=== PATIENT | female | born 1930 | race Caucasian/White ===

== ENCOUNTER 2017-01-28 01:10 | Inpatient (IN) | payer OTHER ==
[~2017-01-28] VITALS: Ht 162.6 cm; Wt 75.4 kg
[2017-01-28] VITALS (12 sets, daily range): BP systolic 128–161; BP diastolic 58–80
[~2017-01-28 01:10] MED LIST: AMARYL1 MG PO; AMLODIPINE BESY10 MG PO; ASPIRIN325 MG PO; CALCIUM + VITA1 EACH PO; COZAAR100 MG PO; DITROPAN XL5 MG; DITROPAN XL5 MG PO; HYDROCHLOROTHIA25 MG PO; LEVOTHYROXINE25 MCG PO; LEVOTHYROXINE50 MCG PO; LIPITOR20 MG PO; LOVENOX40 MG/0.4 SC; MULTI-DAY VITA1 EACH PO; NEURONTIN300 MG PO; PAXIL10 MG PO; PRILOSEC20 MG PO; TENORMIN50 MG PO; VITAMIN C1000 MG PO
[2017-01-28 02:05] LABS: MCH 21.8 PG (29.0-34.0); MCHC 28.9 G/DL (30.0-36.0); MCV 75.4 FL (83-99); MEAN PLAT.VOLUME 9.3 uM^3 (9.5-12.4); PLATELET COUNT 355 K/uL (156-360); RBC DIS.WIDTH-CV 18.4 % (11.8-14.6); RBC DIS.WIDTH-SD 48.5 % (39-53); RED BLOOD COUNT 2.52 M/uL (3.80-5.20); WHITE BLOOD COUNT 12.4 K/uL (4.1-10.2)
[2017-01-28 02:07] LABS: INTER. NORMALIZED RATIO 1.1; PROTHROMBIN TIME 10.7 (9.2-11.2); PTT 24.6 (25-32)
[2017-01-28 02:09] LABS: CHLORIDE 105 mEq/L (99-109); POTASSIUM 4.4 mEq/L (3.7-5.4); SODIUM 138 mEq/L (136-147)
[2017-01-28 02:11] LABS: GLUCOSE 147 mg/dL (70-99)
[2017-01-28 02:12] LABS: ANION GAP 12 MEQ/L (2-14)
[2017-01-28 02:15] LABS: GFR ESTIMATE (CALCULATED) > 59 mL/min/
[2017-01-28 02:16] LABS: UREA NITROGEN (BUN) 24 mg/dL (9-23)
[2017-01-28 02:19] LABS: TROP-I INTERPRETATION NEGATIVE; TROPONIN-I 0.02 ng/mL (0.0-0.30)
[2017-01-28 08:20] LABS: HEMATOCRIT 22.9 % (36.0-46.0); MCV 76.1 FL (83-99)
[2017-01-28 08:31] LABS: IRON 57 MCG/DL (35-150)
[2017-01-28 14:55] LABS: TROP-I INTERPRETATION NEGATIVE; TROPONIN-I 0.07 ng/mL (0.0-0.30)
[2017-01-28] MEDS ORDERED: LEVO-T50 MCG PO (17:07)
[2017-01-28 18:32] LABS: HEMATOCRIT 28.4 % (36.0-46.0); MCV 76.3 FL (83-99)
[2017-01-28 19:01] LABS: TROP-I INTERPRETATION NEGATIVE
[2017-01-29] VITALS (11 sets, daily range): BP systolic 132–187; BP diastolic 63–95
[2017-01-29 06:30] LABS: HEMATOCRIT 25.5 % (36.0-46.0); MCH 23.2 PG (29.0-34.0); MCHC 30.6 G/DL (30.0-36.0); MCV 75.9 FL (83-99); MEAN PLAT.VOLUME 9.2 uM^3 (9.5-12.4); PLATELET COUNT 286 K/uL (156-360); RBC DIS.WIDTH-CV 17.3 % (11.8-14.6); RBC DIS.WIDTH-SD 46.8 % (39-53)
[2017-01-29 06:40] LABS: ALKALINE PHOSPHATASE 58 IU/L (3-129); ANION GAP 8 MEQ/L (2-14); CHLORIDE 100 MEQ/L (99-109); GFR ESTIMATE (CALCULATED) > 59 mL/min/; SAMPLE HEMOLYSIS CHECK 0; SAMPLE ICTERIC CHECK 0; SAMPLE LIPEMIA CHECK 0; SODIUM 138 MEQ/L (136-147); TOTAL BILIRUBIN 1.8 MG/DL (0.0-1.0); UREA NITROGEN (BUN) 13 mg/dL (9-23)
[2017-01-29 06:52] LABS: GLUCOSE 104 mg/dL (70-99); POTASSIUM 3.3 MEQ/L (3.7-5.4)
[2017-01-29 07:00] LABS: RED BLOOD COUNT 3.36 M/uL (3.80-5.20); WHITE BLOOD COUNT 7.5 K/uL (4.1-10.2)
[2017-01-29 09:21] LABS: FERRITIN 12 NG/ML (10-291)
[2017-01-29 21:05] LABS: HEMATOCRIT 33.2 % (36.0-46.0); MCV 79.8 FL (83-99)
[2017-01-30 03:00] VITALS: BP 163/70
[2017-01-30 07:07] LABS: HEMATOCRIT 33.1 % (36.0-46.0); MCH 24.2 PG (29.0-34.0); MCHC 30.2 G/DL (30.0-36.0); MEAN PLAT.VOLUME 9.1 uM^3 (9.5-12.4); PLATELET COUNT 274 K/uL (156-360); RBC DIS.WIDTH-SD 56.3 % (39-53); WHITE BLOOD COUNT 6.1 K/uL (4.1-10.2)
[2017-01-30 07:20] VITALS: BP 173/80
[2017-01-30 08:26] LABS: RED BLOOD COUNT 4.14 M/uL (3.80-5.20)
[2017-01-30 08:56] LABS: ANION GAP 10 MEQ/L (2-14); CHLORIDE 102 MEQ/L (99-109); GFR ESTIMATE (CALCULATED) > 59 mL/min/; GLUCOSE 114 mg/dL (70-99); POTASSIUM 3.7 MEQ/L (3.7-5.4); SAMPLE HEMOLYSIS CHECK 0; SAMPLE ICTERIC CHECK 1; SAMPLE LIPEMIA CHECK 0; SODIUM 139 MEQ/L (136-147); UREA NITROGEN (BUN) 8 mg/dL (9-23)
[2017-01-30 12:03] VITALS: BP 151/72
[2017-01-30 15:10] LABS: POINT-OF-CARE METER ID UU13113694
[2017-01-30 15:35] VITALS: BP 179/74
[2017-01-30 19:30] VITALS: BP 136/63
[2017-01-30 20:40] LABS: HEMATOCRIT 33.3 % (36.0-46.0)
[2017-01-30 23:00] VITALS: BP 144/69
[2017-01-31 03:00] VITALS: BP 165/72
[2017-01-31 06:09] LABS: BASOPHIL COUNT 0.1 K/uL (0-0.1); EOSINOPHIL (%) 6.6 % (0-5); EOSINOPHIL COUNT 0.7 K/uL (0-0.3); HEMATOCRIT 35.6 % (36.0-46.0); IMMATURE GRANULOCYTE (%) 0.5 % (0.0-0.7); IMMATURE GRANULOCYTE COUNT 0.1 K/uL; INSTRUMENT ABS NEUTROPHIL CT 5.9 K/uL; LYMPHOCYTE COUNT 2.8 K/uL (1.0-2.8); MCH 24.4 PG (29.0-34.0); MCHC 30.3 G/DL (30.0-36.0); MCV 80.4 FL (83-99); MEAN PLAT.VOLUME 9.2 uM^3 (9.5-12.4); MONOCYTE (%) 9.1 % (3-12); NEUTROPHIL COUNT 5.9 K/uL (1.8-6.4); PLATELET COUNT 340 K/uL (156-360); RBC DIS.WIDTH-CV 20.6 % (11.8-14.6); RBC DIS.WIDTH-SD 58.1 % (39-53); RED BLOOD COUNT 4.43 M/uL (3.80-5.20)
[2017-01-31 06:11] LABS: WHITE BLOOD COUNT 10.6 K/uL (4.1-10.2)
[2017-01-31 06:37] LABS: TROP-I INTERPRETATION NEGATIVE; TROPONIN-I 0.05 ng/mL (0.0-0.30)
[2017-01-31 06:43] LABS: ALKALINE PHOSPHATASE 74 IU/L (3-129); ANION GAP 14 MEQ/L (2-14); CHLORIDE 98 MEQ/L (99-109); GFR ESTIMATE (CALCULATED) > 59 mL/min/; MAGNESIUM 1.9 mg/dl (1.3-2.7); POTASSIUM 3.6 MEQ/L (3.7-5.4); SAMPLE HEMOLYSIS CHECK 0; SAMPLE ICTERIC CHECK 0; SAMPLE LIPEMIA CHECK 0; SODIUM 136 MEQ/L (136-147); TOTAL BILIRUBIN 1.7 MG/DL (0.0-1.0); UREA NITROGEN (BUN) 16 mg/dL (9-23)
[2017-01-31 06:45] LABS: GLUCOSE 204 mg/dL (70-99)
[2017-01-31 07:26] VITALS: BP 170/70
[2017-01-31 11:58] VITALS: BP 165/70
== END 2017-01-31 15:21 | disposition short-term general hospital (02) | DRG 378 ==
LOC: EME → EDBD 01:10 → EME 01:10 → 4EAST 03:49 → EDOF 03:49 → 4EAST 04:32
PROVIDERS: Emergency Medicine; Hospitalist; Internal Medicine; Internal Medicine Cardiovascular Disease; Internal Medicine Gastroenterology
PROC: 30233N1 Transfusion of Nonautologous Red Blood Cells into Peripheral Vein, Percutaneous Approach (ICD-10-PCS; principal; 2017-01-28)
DX: K92.2 Gastrointestinal hemorrhage, unspecified (principal); I47.2 Ventricular tachycardia; I44.2 Atrioventricular block, complete; E87.1 Hypo-osmolality and hyponatremia; E11.9 Type 2 diabetes mellitus without complications; D50.9 Iron deficiency anemia, unspecified; I10 Essential (primary) hypertension; E78.5 Hyperlipidemia, unspecified; E86.0 Dehydration; R55 Syncope and collapse; I50.9 Heart failure, unspecified; I35.0 Nonrheumatic aortic (valve) stenosis; I95.9 Hypotension, unspecified; R09.89 Other specified symptoms and signs involving the circulatory and respiratory systems; I45.81 Long QT syndrome
CPT/HCPCS: 71010; 71020; 74176; 80048; 80053; 81003; 82272; 82607; 82728; 82746; 82948; 83540; 83735; 83880; 84100; 84466; 84484; 85014; 85018; 85025; 85027; 85610; 85730; 86850; 86900; 86901; 86920; 93005; 93306; 94640; 99281; 99285; C9113; J1940; J2405; J3475; J3480; J7030; J7050; P9016; Q0138

== ENCOUNTER 2018-04-20 16:47 | Inpatient (IN) | payer OTHER ==
[~2018-04-20] VITALS: Ht 157.5 cm; Wt 77.9 kg
[2018-04-20] VITALS (8 sets, daily range): BP systolic 129–152; BP diastolic 64–88
[~2018-04-20 16:47] MED LIST changes: +CALCIUM 500 MG1 EACH PO; +DULCOLAX10 MG PR; +EXTRA STRENGTH500 M1 PO; +FLEET MINERAL133 ML PR; +LASIX20 MG PO; +LEVO-T50 MCG PO; +METFORMIN HCL500 MG PO; +MICRO-K10 ME2 PO; +MILK OF MAGNESI10 ML PO; +NORVASC5 MG PO; +TENORMIN25 MG PO; -TENORMIN50 MG PO
[2018-04-20] MEDS ORDERED: LISINOPRIL5 MG PO (18:25)
[2018-04-20] MEDS ORDERED: TOLTERODINE TART4 MG PO (18:25)
[2018-04-20] MEDS ORDERED: LO-DOSE ASPIRIN81 M2 PO (18:26)
[2018-04-20] MEDS ORDERED: TYLENOL EXTRA500 MG PO (18:26)
[2018-04-20] MEDS ORDERED: VALSARTAN80 MG PO (18:26)
[2018-04-21] VITALS (14 sets, daily range): BP systolic 103–154; BP diastolic 55–77
[2018-04-21 02:09] LABS: APPEARANCE CLEAR ((CLEAR)); BILIRUBIN NEGATIVE; BLOOD NEGATIVE; COLOR STRAW ((YELLOW)); GLUCOSE (STRIP) NEGATIVE; KETONES NEGATIVE; LEUKOCYTES NEGATIVE; NITRITE NEGATIVE; PROTEIN (STRIP) NEGATIVE; SPECIFIC GRAVITY 1.004 (1.000-1.030); UCUL ADDED? NO; UROBILINOGEN 0.2 MG/DL (0.2-1.0)
[2018-04-21 06:59] LABS: HEMATOCRIT 28.2 % (36.0-46.0); MCHC 29.8 G/DL (30.0-36.0); NRBC (%) 0.6 /100 WBC (0-0); PLATELET COUNT 229 K/uL (156-360); RBC DIS.WIDTH-SD 61.4 % (39-53); WHITE BLOOD COUNT 6.8 K/uL (4.1-10.2)
[2018-04-21 07:06] LABS: HEMOGLOBIN 8.4 G/DL (11.9-15.5); MCH 21.9 PG (29.0-34.0); MCV 73.4 FL (83-99); RED BLOOD COUNT 3.84 M/uL (3.80-5.20)
[2018-04-21 07:12] LABS: CHLORIDE 102 MEQ/L (99-109); CREATININE 0.7 MG/DL (0.6-1.3); GFR ESTIMATE (CALCULATED) > 59 mL/min/; POTASSIUM 3.7 MEQ/L (3.7-5.4); SODIUM 142 MEQ/L (136-147); UREA NITROGEN (BUN) 16 mg/dL (9-23)
[2018-04-21 07:24] LABS: GLUCOSE 93 mg/dL (70-99)
[2018-04-22 05:17] VITALS: BP 130/59
[2018-04-22 07:30] VITALS: BP 124/59
[2018-04-22 08:42] LABS: BASOPHIL (%) 1.7 % (0-1); BASOPHIL COUNT 0.1 K/uL (0-0.1); EOSINOPHIL (%) 7.2 % (0-5); EOSINOPHIL COUNT 0.4 K/uL (0-0.3); HEMOGLOBIN 8.3 G/DL (11.9-15.5); IMMATURE GRANULOCYTE (%) 0.8 % (0.0-0.7); LYMPHOCYTE COUNT 0.7 K/uL (1.0-2.8); MCH 22.1 PG (29.0-34.0); MCHC 29.6 G/DL (30.0-36.0); MCV 74.7 FL (83-99); MONOCYTE COUNT 0.5 K/uL (0-0.8); NEUTROPHIL (%) 66.3 % (45-76); NEUTROPHIL COUNT 3.5 K/uL (1.8-6.4); NRBC (%) 0.6 /100 WBC (0-0); PLATELET COUNT 211 K/uL (156-360); RBC DIS.WIDTH-CV 23.9 % (11.8-14.6); RBC DIS.WIDTH-SD 63.9 % (39-53); RED BLOOD COUNT 3.75 M/uL (3.80-5.20); WHITE BLOOD COUNT 5.3 K/uL (4.1-10.2)
[2018-04-22] MEDS ORDERED: PRILOSEC20 MG PO (09:54)
== END 2018-04-22 14:10 | disposition home or self-care (01) | DRG 812 ==
LOC: EME 16:47 → EDOF 19:31 → ENRESERV 19:33 → 4EAST 22:31
PROVIDERS: Hospitalist; Internal Medicine
PROC: 30233N1 Transfusion of Nonautologous Red Blood Cells into Peripheral Vein, Percutaneous Approach (ICD-10-PCS; principal; 2018-04-20)
DX: D50.0 Iron deficiency anemia secondary to blood loss (chronic) (principal); K92.1 Melena; I11.0 Hypertensive heart disease with heart failure; I50.32 Chronic diastolic (congestive) heart failure; K21.9 Gastro-esophageal reflux disease without esophagitis; E78.5 Hyperlipidemia, unspecified; F41.9 Anxiety disorder, unspecified; E11.42 Type 2 diabetes mellitus with diabetic polyneuropathy; E03.9 Hypothyroidism, unspecified; R79.1 Abnormal coagulation profile; N39.3 Stress incontinence (female) (male); Z86.73 Personal history of transient ischemic attack (TIA), and cerebral infarction without residual deficits; Z95.0 Presence of cardiac pacemaker; Z95.2 Presence of prosthetic heart valve
CPT/HCPCS: 36415; 71045; 74177; 80048; 80069; 81003; 82272; 82728; 82746; 82948; 83036 GA; 83540; 83880 GA; 84443; 84466; 85025; 85027; 85046; 85379; 86850; 86900; 86901; 86920; 93970; 99281; 99285; C9113; J1940; J7050; P9016; Q0138